=== PATIENT | male | born 1995 | race Caucasian/White ===

== ENCOUNTER 2016-11-16 14:54 | Emergency (ER) | payer BC ==
[2016-11-16 15:30] VITALS: BP 157/57
[2016-11-16] MEDS ORDERED: Ibuprofen TAB* 600 MG PO ONE (15:32)
[2016-11-16] MEDS ORDERED: Morphine VIAL* 10 MG/ML 1 ML VIAL IM ONE (15:57)
--- NOTE | 2016-11-16 16:14 | UC ---
Hand/Wrist HPI - HPI Summary HPI Summary: Patient was batting in a Baseball game, was hit in the right hand by the pitch, lots of pain and swelling. hard to move his fingers. - History Of Current Complaint Chief Complaint: UCUpperExtremity Stated Complaint: RIGHT WRIST INJURY Time Seen by Provider: 11/16/16 15:30 Hx Obtained From: Patient ?: No Onset/Duration: Sudden Onset, Lasting Hours Severity Initially: Severe Severity Currently: Moderate Character Of Pain: Aching, Throbbing, Stiffness Aggravating Factor(s): Movement Alleviating: Ice Associated Signs And Symptoms: Positive: Swelling, Bruising, Weakness Related History: Dominant Hand Right - Allergies/Home Medications Allergies/Adverse Reactions: Allergies Allergy/AdvReac Type Severity Reaction Status Date / Time No Known Allergies Allergy Verified 11/16/16 15:24 Home Medications: Home Medications NK [No Home Medications Reported] 11/16/16 [History Confirmed 11/16/16] PMH/Surg Hx/FS Hx/Imm Hx Previously Healthy: Yes Endocrine History Of: Denies: Diabetes, Thyroid Disease, Hyperthyroidism, Hypothyroidism, Dyslipidemia Cardiovascular History Of: Denies: Cardiac Disorders, Hypertension, Pacemaker/ICD, Myocardial Infarction , Congestive Heart Failure, Atrial Fibrillation, Deep Vein Thrombosis, Bleeding Disorders Respiratory History Of: Denies: COPD, Asthma, Bronchitis, Pneumonia, Pulmonary Embolism GI/ History Of: Denies: Gastroesophageal Reflux, Ulcer, Gastrointestinal Bleed, Gall Bladder Disease, Kidney Stones, Diverticulitis, Renal Disease, Urosepsis Neurological History Of: Denies: TIA, CVA, Dementia, Seizures, Migraine Psychological History Of: Denies: Anxiety, Depression, Bipolar Disorder, Schizophrenia, Post Traumatic Stress Disorder Cancer History Of: Denies: Lung Cancer, Colorectal Cancer, Breast Cancer, Prostate Cancer, Cervical Cancer Other History Of: Negative For: HIV, Hepatitis B, Hepatitis C - Surgical History Surgical History: None - Family History Known Family History: Positive: None Negative: Cardiac Disease, Hypertension - Social History Alcohol Use: Rare Substance Use Type: None Smoking Status (MU): Never Smoked Tobacco Review of Systems Constitutional: Negative Skin: Bruising Eyes: Negative ENT: Negative Respiratory: Negative Cardiovascular: Negative Gastrointestinal: Negative Genitourinary: Negative Motor: Negative Musculoskeletal: Arthralgia, Edema, Myalgia Neurological: Negative Psychological: Negative All Other Systems Reviewed And Are Negative: Yes Physical Exam Triage Information Reviewed: Yes Appearance: Well-Appearing, Well-Nourished, Pain Distress Vital Signs: Initial Vital Signs Temp 99.7 F 11/16/16 15:24 Pulse 74 11/16/16 15:24 Resp 16 11/16/16 15:24 BP 157/57 11/16/16 15:24 Pulse Ox 99 11/16/16 15:24 Vital Signs Reviewed: Yes Eye Exam: Normal Eyes: Positive: Conjunctiva Clear ENT Exam: Normal ENT: Positive: Pharynx normal, Pharyngeal erythema, TMs normal Dental Exam: Normal Neck exam: Normal Neck: Positive: Supple, Nontender, No Lymphadenopathy Respiratory Exam: Normal Respiratory: Positive: Chest non-tender, Lungs clear, Normal breath sounds Cardiovascular Exam: Normal Cardiovascular: Positive: RRR, No Murmur, Pulses Normal Abdominal Exam: Normal Abdomen Description: Positive: Nontender, No Organomegaly, Soft Musculoskeletal: Positive: Strength Limited @ - in right hand, ROM Limited @ - all fingers of right hand, wrist pain with flex and ext, Edema @ - right hand Neurological Exam: Normal Neurological: Positive: Alert, Muscle Tone Normal Psychological Exam: Normal Skin: Positive: Other - bruising over daniel dorsum of the hand Hand/Wrist Course/Dx - Course Course Of Treatment: hx obtained, exam performed, meds reviewed, xray, pain meds given and fracture reduced and ulnar gutter splint applied recommend following up with Dr Healy, whom he is seeing for a previous shoulder injury - Differential Dx/Diagnosis Differential Diagnosis/HQI/PQRI: Contusion, Dislocation, Sprain, Strain Provider Diagnoses: fracture of right 5th met Discharge - Discharge Plan Condition: Stable Disposition: HOME Patient Education Materials: Boxer Fracture (ED) Additional Instructions: continue with ibuprofen for swelling. keep hand elevated for the next few days to prevent dependant swelling. Follow up with Dr Healy next week.
--- NOTE | 2016-11-16 16:34 | RAD ---
Indication: Right hand injury. 3 views of the right hand demonstrates fracture of the fifth metacarpal head with slight volar angulation. IMPRESSION: Fracture of the fifth metacarpal head with slight volar angulation.
== END 2016-11-16 16:51 | disposition home or self-care (01) ==
LOC: UCCORT 14:54
DX: S62.396A Other fracture of fifth metacarpal bone, right hand, initial encounter for closed fracture (principal); W21.03XA Struck by baseball, initial encounter; Y93.64 Activity, baseball; Y92.320 Baseball field as the place of occurrence of the external cause
CPT/HCPCS: 96372; 99213; A9270-GY; G0463; J2270

== ENCOUNTER 2016-12-12 09:10 | Day surgery (SDC) | payer BC ==
[2016-12-12] MEDS ORDERED: Famotidine IV* 10 MG/ML 2 ML (20 mg) ONE (09:34)
[2016-12-12] MEDS ORDERED: Buffered Lidocaine 1% SYRIN* 5 ML/SYR SYRINGE ONE (09:34)
[2016-12-12] MEDS ORDERED: Dexamethasone IV* 4 MG/ML 1 ML (4 MG) ONE (09:34)
[2016-12-12] MEDS ORDERED: ceFAZolin 2 GM PREMIX(*) 2 GM/50 ML BAG IVPB ONE (10:50)
[2016-12-12] MEDS ORDERED: Lidocaine 2% PF * 5 ML VIAL ONE (11:36)
[2016-12-12] MEDS ORDERED: Propofol* 10 MG/ML 20 ML BTL IV PUSH ONE (11:36)
[2016-12-12] MEDS ORDERED: Midazolam* 1 MG/ML 2 ML VIAL (2 MG) ONE (11:36)
[2016-12-12] MEDS ORDERED: fentaNYL* 50 MCG/ML 2 ML VIAL (100 MCG VIAL) ONE ×2 (11:36→12:11)
[2016-12-12] MEDS ORDERED: PROCHLORPERAZINE INJ 5 MG/ML 2 ML VIAL IV PRN (11:37)
[2016-12-12] MEDS ORDERED: HYDROcodone/ACETAMIN 5-325 MG* 1 TAB PO PRN (11:37)
[2016-12-12] MEDS ORDERED: fentaNYL* 50 MCG/ML 2 ML VIAL (100 MCG VIAL) IV PRN (11:37)
[2016-12-12] MEDS ORDERED: Ketorolac INJ* 30 MG/ML 1 ML VIAL ONE (12:04)
[2016-12-12] MEDS ORDERED: Ondansetron INJ* 2 MG/ML VIAL ONE (12:37)
[2016-12-12] MEDS ORDERED: HYDROcodone/ACETAMIN 5-325 MG* 1 TAB ONE (14:02)
[2016-12-12 14:57] VITALS: BP 142/67
--- NOTE | 2016-12-13 03:26 | OP ---
DATE OF OPERATION: 12/12/[address] [facility] DATE OF : [birth year] SURGEON: Kwame Robles MD DEICER ELEMENT WINDER MACHINE: ARELI Miller ANESTHESIOLOGIST: Dr. Cortez. ANESTHESIA: General. PRE-OP DIAGNOSIS: Right displaced fifth metacarpal neck fracture. POST-OP DIAGNOSIS: Right displaced fifth metacarpal neck fracture. OPERATIVE PROCEDURE: Limited open reduction and percutaneous fixation of right fifth metacarpal neck fracture. INDICATIONS: Segundo is a patient who had a displaced fifth metacarpal neck fracture. He was reduced. He was casted by the sports medicine doctors. After about a week and a half when he started to have some progressive angulation in the fracture, they sent him over to be seen by me. At the time, his angulation was 40 degrees. I told him we should hold off and I placed him in a cast a week and a half later. When he came back, he was over 50 degrees angulated. 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 He is only 21 years old. I talked to him about options including letting it heal where it is and it may potentially angulate a little bit more or proceeding with a limited open reduction and percutaneous fixation. He wanted to proceed with correction and align the bone. We discussed risks and benefits. He elected to proceed. ESTIMATED BLOOD LOSS: 2 mL. COMPLICATIONS: None. FINDINGS: As expected. DESCRIPTION OF PROCEDURE: Segundo was seen in the preoperative holding area and the correct side, site, and procedure were identified. We came back to the operating room. Anesthesia was induced. The arm was pre-scrubbed and then prepped and draped in the usual fashion. A formal time-out was performed. I began by bringing in the C-arm. I attempted to close reduce the fracture. It has been over 3 weeks and so I did not expect it to and it did not easily close reduce. I therefore made a 1-cm incision over the dorsal ulnar aspect of the fifth metacarpal just over the fracture site. I had marked this out using the fluoroscopy. Dissection was carried down bluntly to bone and I came just off the ulnar aspect of the tendons. Under fluoroscopic guidance, a small osteotome was placed into the fracture site. I then wiggled this back and forth until the fracture mobilized. Once I had the fracture mobilized, I was able to close reduce it. I then turned my attention proximally where I marked out fluoroscopically the base of the fifth metacarpal. 1.5 cm proximal to that, I made a 1-cm longitudinal incision over the ulnar aspect of the proximal palm. I then bluntly dissected down to the base of the fifth metacarpal bone. I then brought in a larger K-wire and opened up the cortex on the ulnar aspect of the base of the fifth metacarpal. I then took a 2 mm sized wire and bent the tip so as to be able to guide the trajectory. I placed the wire T-handle forest and introduced it into the fifth metacarpal through the cortical window that I created earlier. I used the T-handle forest to advance this up to the fracture site. I then reduced the fracture and had my assistant director of financial aid drive the wire up past the fracture site. I checked some fluoroscopic images. I felt like we had little bit over correction, so I backed up the wire. I then re-did the reduction and had my assistant director of financial aid advance the wire up to the subchondral bone. I took off the T-handle forest, we checked the reduction. Everything looked very nice fluoroscopically and clinically, so we went ahead and bent and clipped the wire. The tip of the wire was covered with a pin cap. Prior to this, the incisions were irrigated and closed with 4-0 nylon suture. I did place one suture proximally and the incision just to close the space around the pin. After a pin cap was placed, we went ahead and infiltrated the operative area with 0.25% Marcaine. Pin was dressed with Xeroform, 4x4s, was well protected and padded. I then placed an ulnar gutter splint in the protected position. He was then awoken up and taken to the Recovery in stable condition. Please note that I had exsanguinated the arm and inflated the tourniquet to 250 mmHg prior to making the skin incision. After the splint was on, the tourniquet was deflated. The fingers pinked up immediately. [id number]/[facility] #: [id number] MTDD
--- NOTE | 2016-12-13 16:40 | RAD ---
INDICATION: Intraoperative fluoroscopy percutaneous pinning RIGHT fifth metacarpal COMPARISON: December 11, 2016 radiographs TECHNIQUE: 2 minutes 45 seconds fluoroscopy. FINDINGS: Spot images document placement of a percutaneous fixation wire across the boxer's fracture with gross anatomic alignment resulting. IMPRESSION: Procedural fluoroscopy. CPT II Codes: 6045F
== END 2016-12-12 14:57 | disposition home or self-care (01) ==
LOC: OREAST 09:10
PROVIDERS: ATTEND Orthopaedic Surgery Hand Surgery
DX: S62.336D Displaced fracture of neck of fifth metacarpal bone, right hand, subsequent encounter for fracture with routine healing (principal); J45.909 Unspecified asthma, uncomplicated; Y93.9 Activity, unspecified; Y92.9 Unspecified place or not applicable
CPT/HCPCS: 76000; C1776; J0690; J1100; J1885; J2250; J2405; J2704; J3010

== ENCOUNTER 2018-11-09 14:26 | Emergency (ER) | payer BC ==
[2018-11-09 15:17] VITALS: BP 136/84
[2018-11-09] MEDS ORDERED: Lidocaine 1% MPF* 2 ML VIAL INJ ONE (15:30)
--- NOTE | 2018-11-09 15:30 | UC ---
General HPI - HPI Summary HPI Summary: bump on chest for about 10 days. had a little yellow drainage at one point. was red around the site but that is now gone. no fever. no hx mrsa. - History of Current Complaint Chief Complaint: UCSkin Stated Complaint: CHEST SKIN CONCERN Time Seen by Provider: 11/09/18 15:20 Hx Obtained From: Patient Onset/Duration: Gradual Onset Timing: Constant Pain Intensity: 0 Associated Signs & Symptoms: Negative: Fever - Allergy/Home Medications Allergies/Adverse Reactions: Allergies Allergy/AdvReac Type Severity Reaction Status Date / Time No Known Allergies Allergy Verified 11/09/18 15:15 PMH/Surg Hx/FS Hx/Imm Hx Previously Healthy: Yes Other History Of: Negative For: HIV, Hepatitis B, Hepatitis C - Surgical History Surgical History: None - Family History Known Family History: Positive: None Negative: Cardiac Disease, Hypertension - Social History Occupation: Student Lives: With Family Alcohol Use: Occasionally Substance Use Type: None Smoking Status (MU): Never Smoked Tobacco Review of Systems All Other Systems Reviewed And Are Negative: No Constitutional: Negative: Fever, Chills, Fatigue Skin: Positive: Rash - bump on chest Physical Exam Triage Information Reviewed: Yes Appearance: Well-Appearing Vital Signs: Initial Vital Signs Temp 97 F 11/09/18 15:15 Pulse 89 11/09/18 15:15 Resp 16 11/09/18 15:15 BP 136/84 11/09/18 15:15 Pulse Ox 98 11/09/18 15:15 Vital Signs Reviewed: Yes Eyes: Positive: Conjunctiva Clear Respiratory: Positive: Lungs clear Cardiovascular: Positive: RRR Abdomen Description: Positive: Nontender Musculoskeletal: Positive: ROM Intact Neurological: Positive: Alert Psychological: Positive: Age Appropriate Behavior Skin Exam: Normal, Other - Center or chest has a 2cm area that is raised, pink and fluctuant. No surrounding erythema. Course/Dx - Course Course Of Treatment: PROCEDURE BY THIS PA: TIME OUT. SITE PREP BETADINE. LINEAR LOCAL WITH 1ML 1% LIDOCAINE. TIP #11 BLADE USED TO MAKE A SUPERFICIAL STAB. PUSS DRAINED AND CULTURE OBTAINED. GENTLE PRESSURE DRAINED MORE PUSS AND SOME SEBUM. GENTLE DISSECTION WITH A BLUNT FORCEP. IRRIGATED WITH STERILE NACL. TOPICAL ANTIBIOTIC PLACED OVER SURFACE AND STERILE GAUZE. ONLY SLIGHT BLEEDING. STERILE TECHNIQUE USED AND PT TOLERATED WELL. NO PO ANTIBIOTICS-NO CELLULITIS. - Diagnoses Provider Diagnosis: Abscess Discharge - Sign-Out/Discharge Documenting (check all that apply): Patient Departure All imaging exams completed and their final reports reviewed: No Studies - Discharge Plan Condition: Stable Disposition: HOME Patient Education Materials: Abscess Incision and Drainage (DC) Referrals: Anirudh Gong [Medical Doctor] - 3 Days - Billing Disposition and Condition Condition: STABLE Disposition: Home
== END 2018-11-09 16:20 | disposition home or self-care (01) ==
LOC: UCCORT 14:26
DX: L02.213 Cutaneous abscess of chest wall (principal)
CPT/HCPCS: 10060; 87070; 87077; 87205; 87640; 87641; 99211; G0463